=== PATIENT | female | born 1975 | race Caucasian/White ===

== ENCOUNTER → 2017-05-30 | Day surgery (SDC) | payer OTHER ==
[~2017-05-30] VITALS: Ht 165.1 cm; Wt 63.0 kg
[~2017-05-30] MED LIST: ACETAMINOPHEN 1000 MG/100 ML 100 ML IV ONE; ACETAMINOPHEN/HYDROcodone 325 MG/7.5 MG TAB ONE; BUPIVACAINE HCL PF 0.5% 10 ML VIAL ONE; BUPIVACAINE HCL PF 0.5% 30 ML VIAL ONE; CHLORHEXIDINE GLUCONATE 2 % 1 PACK (2 CLOTHS) TOPICAL PRN; CIPR250T52 PO; CIPROFLOXACIN 400 MG PREMIX 200 ML IV SCH; DEXAMETHASONE SOD PHOS 4 MG/ML VIAL IV ONE; FAMOTIDINE 20 MG/2 ML VIAL ONE; HYDR-3288 PO; HYDROmorphone HCL PF 2 MG/ML VIAL ONE; KETOROLAC TROMETHAMINE 30 MG/ML (IVP) VIAL IV PUSH ONE; LACTATED RINGER'S 1000 ML IV PRN; LIDOCAINE HCL 1% PF 5 ML SYRINGE OTHER ONE; LIDOCAINE HCL 2% 50 ML VIAL ONE; METOPROLOL TARTRATE 25 MG TAB PO PRN; MIDAZOLAM HCL 2 MG/2 ML VIAL ONE; MORPHINE SULFATE 4 MG/ML INJ ONE; NEOMYCIN/POLYMYXIN 1 ML G.U. IRRIGANT ONE; ONDANSETRON HCL 4 MG/2 ML VIAL IV PUSH ONE; ONDANSETRON HCL 4 MG/2 ML VIAL ONE; PHENYLEPH/NS 1000 MCG/10 ML SYR IV ONE; POVIDONE IODINE 5% (ANTISEPSIS KIT) 4 APPLICATIONS EACH NARE PRN; PROMETHAZINE INJ 25 MG/ML VIAL ONE; PROPOFOL 200 MG/20 ML AMP IV ONE; ePHEDrine/NS 25 MG/5 ML SYRINGE IV ONE
--- NOTE | 2017-05-30 10:31 | MP ---
cc: SCOOTER SILVERMAN III, M.D. DATE OF SURGERY 05/30/2017 PREOPERATIVE DIAGNOSIS Left middle finger proximal phalanx malunion. PROCEDURE 1. Left middle finger proximal phalanx osteotomy 2. Left middle finger proximal phalanx open reduction internal fixation 22 modifier, complex case. 3. Use of image intensifier SURGEON Scooter Silverman III, MD PROCEDURE The patient was brought to the operating room, placed supine on the operating table. After the correct site and side of surgery were verified by members of each team in the room multiple times including the patient and myself and after adequate preoperative markings and preoperative written consent was verified by everyone and after adequate preoperative time-out was performed to everyone's satisfaction and after adequate general anesthesia had been achieved, the left upper extremity was prepped and draped in the traditional sterile surgical fashion. A 50/50 mixture of 2% plain lidocaine and 0.5% plain Marcaine was infiltrated in the skin and subcutaneous tissue on the dorsal aspect of the finger. The limb was exsanguinated with an Barney wrap and a highly placed well-padded tourniquet was inflated to 200 mmHg for a total of 38 minutes. A longitudinally oriented incision with skin flaps over the PIP joint was made, carried down through skin and subcutaneous tissue. Blunt dissection was performed. Bipolar electrocautery was used as needed. The extensor tendon was then elevated up from the proximal phalanx. A small longitudinal portion of the collateral band had to be incised and this expose the ulnar condyle of the proximal phalanx. A periosteal elevator was used to expose the malunited condyle and then meticulous and gentle osteotomy was performed using the osteotomy as well as a [place] elevator and this went up into the joint. The finger was then straightened and pinned in place using a longitudinally oriented 0.045 cm K-wire. The now freed malunited condyle and the opposing bone were cleaned of scarred bone. Thorough irrigation with saline was performed. A small 8 mm fragment was then secured in place manually and held in place and two small 1.3 mm screws were placed at differing angles under C-arm guidance. They were tailored to length, cut and bent. Reduction was judged to be nearly anatomic using the mini C-arm. Final x-rays were obtained. The K-wire was tailored to length, cut and bent, Jurgan's balls applied. Collateral bands were repaired using interrupted 4-0 Vicryl sutures and the skin edges reapproximated using running and interrupted 5-0 nylon suture. The hand and arm were thoroughly cleansed and dried. Betadine Adaptic dressings were applied. Xeroform applied around the K-wires. Betadine Adaptic was applied over the wound followed by a bulky well-padded, well-molded volar immobilizing splint keeping all the fingers together leaving only the thumb free. The patient was awakened from anesthesia and transported to the Post Anesthesia Care awake and in stable condition at the end of the case. The axillary tourniquet was released prior to closure. All the fingers became immediately soft, pink and warm and had brisk capillary refill of less than two seconds. There was no evidence of bleeding. Hemostasis was present. There were no hematoma formation. The sponge, needle and instrument counts were correct at the end of the case as reported by nurses in the room. MD MASTER Baltazar III/RODRIGO /9:55 AM /10:10 AM
[2017-05-30 10:40] VITALS: BP 106/61; PULSE 80; RESP 16; TEMP 97.9; O2SAT 98
== END | disposition home or self-care (01) ==
LOC: PHSDC 06:05
PROVIDERS: ATTEND Orthopaedic Surgery Hand Surgery
DX: S62.613P Displaced fracture of proximal phalanx of left middle finger, subsequent encounter for fracture with malunion (principal)
CPT/HCPCS: 01830; 26567; 26746; J0131; J0744; J1170; J2250; J2270; J2405; J2550; J3010; J7120; 76000; C1713; J1100; J1885; J2370